=== PATIENT | male | born 1980 | race Two or more races ===

== ENCOUNTER 2024-06-29 09:53 | Inpatient (IN) | payer OTHER ==
[2024-06-29] MEDS: SODIUM CHLORIDE 0.9% 1,000 ML IV STA (10:05)
[2024-06-29] MEDS: ATORVASTATIN 80 MG TAB PO STA (10:05)
[2024-06-29] MEDS: HEPARIN SODIUM 1,000 UN/ML (10ML VL) IV ONE (10:05)
--- NOTE | 2024-06-29 10:09 | ED ---
Chest Pain HPI - General Chief Complaint: Chest Pain Stated Complaint: STEMI Time Seen by Provider: 06/29/24 10:00 Source: patient Mode of arrival: EMS Limitations: no limitations - History of Present Illness Initial Comments: 44-year-old male with no reported past medical history who presents emergency department with chest pain. States that the pain started around 4:00 this morning. He started driving himself to the hospital when he "started losing consciousness". States that he pulled his car over to the side of the road and called EMS. EMS arrived and completed an EKG which demonstrated ST segment elevation. He was administered 324 mg of chewable aspirin and 1 nitro. His pain was alleviated. He has no previous history of cardiac disease. Admits to vaping. Intermittently has had chest pain for years and reports that he was treated for reflux. States that this is the most significant pain he has had. Pain radiates into the left arm. No radiation to the back. No other alleviating, precipitating modifying factors - Related Data Home Medications Medication Instructions Recorded Confirmed Testosterone Cypionate 200 mg IM Q14D 06/29/24 06/29/24 [Depo-Testosterone] Allergies Allergy/AdvReac Type Severity Reaction Status Date / Time erythromycin base Allergy Unknown Verified 06/29/24 10:11 [Erythromycin Base] Childhood Penicillins Allergy Unknown Verified 06/29/24 10:11 Childhood Review of Systems ROS Statement: Those systems with pertinent positive or pertinent negative responses have been documented in the HPI. ROS Other: All systems not noted in ROS Statement are negative. Past Medical History Past Medical History: Asthma Additional Past Medical History / Comment(s): LACERATION RIGHT INDEX FINGER History of Any Multi-Drug Resistant Organisms: None Reported Past Surgical History: Cholecystectomy Past Anesthesia/Blood Transfusion Reactions: No Reported Reaction Past Psychological History: No Psychological Hx Reported Past Alcohol Use History: Occasional Past Drug Use History: None Reported General Exam Limitations: no limitations General appearance: alert, in no apparent distress Head exam: Present: atraumatic, normocephalic, normal inspection Eye exam: Present: normal appearance, PERRL, EOMI. Absent: scleral icterus, conjunctival injection, periorbital swelling ENT exam: Present: normal exam, mucous membranes moist Neck exam: Present: normal inspection. Absent: tenderness, meningismus, lymphadenopathy Respiratory exam: Present: normal lung sounds bilaterally. Absent: respiratory distress, wheezes, rales, rhonchi, stridor Cardiovascular Exam: Present: regular rate, normal rhythm, normal heart sounds. Absent: systolic murmur, diastolic murmur, rubs, gallop, clicks GI/Abdominal exam: Present: soft, normal bowel sounds. Absent: distended, tenderness, guarding, rebound, rigid Extremities exam: Present: normal inspection, full ROM, normal capillary refill. Absent: tenderness, pedal edema, joint swelling, calf tenderness Back exam: Present: normal inspection Neurological exam: Present: alert, oriented X3, CN II-XII intact Psychiatric exam: Present: normal affect, normal mood Skin exam: Present: warm, dry, intact, normal color. Absent: rash Course Vital Signs 06/29/24 06/29/24 09:57 10:07 Temperature 98.7 F Pulse Rate 86 105 H Respiratory 20 20 Rate Blood Pressure 168/120 182/103 O2 Sat by Pulse 98 96 Oximetry Chest Pain MDM - MDM Was pt. sent in by a medical professional or institution (, PA, ELIGIBILITY COUNSELOR, urgent care, hospital, or [facility]...) When possible be specific @ -No Did you speak to anyone other than the patient for history (EMS, parent, family, police, friend...)? What history was obtained from this source @ -Spoke with EMS for history Did you review nursing and triage notes (agree or disagree)? Why? @ -I reviewed and agree with nursing and triage notes Were old charts reviewed (outside hosp., previous admission, EMS record, old EKG, old radiological studies, urgent care reports/EKG's, [facility] records)? Report findings @ -No old charts were reviewed Differential Diagnosis (chest pain, altered mental status, abdominal pain women, abdominal pain men, vaginal bleeding, weakness, fever, dyspnea, syncope, headache, dizziness, GI bleed, back pain, seizure, CVA, palpatations, mental health, musculoskeletal)? @ -Differential Chest Pain: Stable Angina, Unstable Angina, STEMI, NSTEMI Aortic Dissection, Pneumothorax, Musculoskeletal, Esophageal Spasm GERD, Cholecystitis, Pancreatitis, Zoster, this is not meant to be an all-inclusive list. EKG interpreted by me (3pts min.). @ -Yes he will demonstrate sinus tachycardia with a rate of 100. OK interval 144. QRS 79. QTc of 356. No ST segment elevation appreciated on this EKG that was previously appreciated on EMS EKG X-rays interpreted by me (1pt min.). @ -yes and demonstrates enlarged cardiac silhouette CT interpreted by me (1pt min.). @ -None done U/S interpreted by me (1pt. min.). @ -None done What testing was considered but not performed or refused? (CT, X-rays, U/S, labs)? Why? @ -None What meds were considered but not given or refused? Why? @ -None Did you discuss the management of the patient with other professionals (professionals i.e. DrFrancisco, PA, ELIGIBILITY COUNSELOR, lab, RT, psych nurse, social services director, card dealer, teacher, attendance officer, immigration case worker)? Give summary @ -Spoke with Dr. Dejesus who does present to the ED to evaluate the patient. Also spoke with Dr. Vásquez for admission Was smoking cessation discussed for >3mins.? @ -No Was critical care preformed (if so, how long)? @ -Yes, 35 minutes for STEMI activation Were there social determinants of health that impacted care today? How? (Homelessness, low income, unemployed, alcoholism, drug addiction, transportation, low edu. Level, literacy, decrease access to med. care, fci, rehab)? @ -No Was there de-escalation of care discussed even if they declined (Discuss DNR or withdrawal of care, Hospice)? DNR status @ -No What co-morbidities impacted this encounter? (DM, HTN, Smoking, COPD, CAD, Cancer, CVA, ARF, Chemo, Hep., AIDS, mental health diagnosis, sleep apnea, morbid obesity)? @ -None Was patient admitted / discharged? Hospital course, mention meds given and route, prescriptions, significant lab abnormalities, going to OR and other pertinent info. @ -Arrival patient seen and evaluated in trauma 1. Dr. Dejesus presents to the ED as a STEMI activation occurred prior to patient's arrival. Patient placed on continuous pulse ox and cardiac monitoring. Pain is controlled at this time. Prehospital EKG demonstrated ST segment elevation in the anterior leads. Repeat EKG does demonstrate normalization of this elevation. He was given atorvastatin 80 mg, 1 L bolus of normal saline and 4000 units of heparin as he has no contraindication. Portable chest x-ray was performed. Patient is taken to the catheterization lab. Spoke with Dr. Vásquez for admission Undiagnosed new problem with uncertain prognosis? @ -Yes Drug Therapy requiring intensive monitoring for toxicity (Heparin, Nitro, Insulin, Cardizem)? @ -Heparin Were any procedures done? @ -No Diagnosis/symptom? @ -Acute ST segment elevation [place] Acute, or Chronic, or Acute on Chronic? @ -Acute Uncomplicated (without systemic symptoms) or Complicated (systemic symptoms)? @ -Complicated Side effects of treatment? @ -No Exacerbation, Progression, or Severe Exacerbation? @ -No Poses a threat to life or bodily function? How? (Chest pain, [place], [place], pneumonia, PE, COPD, DKA, ARF, appy, cholecystitis, CVA, Diverticulitis, Homicidal, Suicidal, threat to staff... and all critical care pts) @ -Yes as patient has significant ST elevation on prehospital EKG Disposition Clinical Impression: STEMI (ST elevation myocardial infarction) Disposition: ADMITTED IP TO THIS [facility] Condition: Serious Is patient prescribed a controlled substance at d/c from ED?: No Referrals: Jeff Slaughter MD [Primary Care Provider] - 1-2 days Time of Disposition: 10:14 Decision to Admit Reason: Admit from EC Decision Date: 06/29/24 Decision Time: 10:14
[2024-06-29] MEDS: MIDAZOLAM 2 MG/2 ML VIAL IVP ONE ×2 (10:18→10:24)
[2024-06-29] MEDS: LIDOCAINE 1% INJ 10MG/ML (20 ML MDV) SQ ONE (10:21)
[2024-06-29] MEDS: fentaNYL (PF) 50 MCG/ML 2 ML AMP IVP ONE (10:23)
[2024-06-29] MEDS ORDERED: NALOXONE 0.4 MG/ML 1 ML VIAL IV PRN (10:26)
--- NOTE | 2024-06-29 10:27 | XR ---
EXAMINATION TYPE: XR chest 1V portable DATE OF EXAM: 06/29/2024 10:09 AM CLINICAL INDICATION: Male, 44 years old with history of chest pain; COMPARISON: None TECHNIQUE: XR chest 1V portable Frontal view of the chest. FINDINGS: Lungs/Pleura: There is no evidence of pleural effusion, focal consolidation, or pneumothorax. Pulmonary vascularity: Unremarkable. Heart/mediastinum: Cardiomediastinal silhouette is unremarkable. Musculoskeletal: No acute osseous pathology. Other findings: None Lines/Tubes: IMPRESSION: No acute cardiopulmonary disease/process.
[2024-06-29] MEDS: HEPARIN SODIUM 1,000 UN/ML (10ML VL) IVP ONE (10:36)
[2024-06-29] MEDS: TICAGRELOR 90 MG TAB PO ONE (10:37)
--- NOTE | 2024-06-29 10:41 | P.CRDCN ---
History of Present Illness Consult date: 06/29/24 Reason for Consult (text): NSTEMI History of present illness: This is a 44-year-old male patient with past medical history of GERD, no previous cardiac history. Patient developed chest pain that started this morning off and on. He was driving and ended up pulling over, was dizzy ended up blacking out" then called EMS. He was having tingling in the left arm as well as midsternal chest pain. EKG revealed ST elevation in the anterior leads. Currently pain is a #4. He has a history of smoking and quit 2 years ago but currently vapes. He also has history of chest pain for 20 years and had his gallbladder removed which did not help relieve the pain. EKG: ST elevation in anterior leads. Chest x-ray: No acute process Laboratory studies: None available Home cardiac medications: None Review Of Systems: At the time of my exam: CONSTITUTIONAL: Denies fever or chills. HEENT: Denies blurred vision, vision changes, or eye pain. Denies hemoptysis CARDIOVASCULAR: Reports 4/10 chest pain. Denies orthopnea. Denies PND. Denies palpitations RESPIRATORY: Denies shortness of breath. GASTROINTESTINAL: Denies abdominal pain. Denies nausea or vomiting. HEMATOLOGIC: Denies bleeding disorders. GENITOURINARY: Denies any blood in urine. SKIN: Denies puritis. Denies rash. Physical examination: Gen: This is a 44-year-old male in no acute distress VS: reviewed HEENT: Head is atraumatic, normocephalic. Pupils equal, round. Sclerae is anict hernan. NECK: Supple. No JVD. LUNGS: Clear to auscultation. No wheezes or rhonchi. No intercostal retractions. HEART: Regular rate and rhythm. No murmur. ABDOMEN: Soft No tenderness. EXTREMITIES: No pedal edema. No calf tenderness. NEUROLOGICAL: Patient is awake, alert and oriented x3. Assessment: Anterior wall ST elevated myocardial infarction Remote history of tobacco use, currently vapes Plan: Patient scheduled for urgent left heart catheterization with Dr. Abdullahi Dejesus Obtain 2-D echocardiogram and Doppler study to assess cardiac structure and function Further recommendations to follow based upon clinical course Thank you kindly for this consultation. Nurse practitioner note has been reviewed, I agree with documented findings and plan of care. Patient was seen and examined. Past Medical History Past Medical History: Asthma Additional Past Medical History / Comment(s): LACERATION RIGHT INDEX FINGER History of Any Multi-Drug Resistant Organisms: None Reported Past Surgical History: Cholecystectomy Past Anesthesia/Blood Transfusion Reactions: No Reported Reaction Past Psychological History: No Psychological Hx Reported Past Alcohol Use History: Occasional Past Drug Use History: None Reported Medications and Allergies Home Medications Medication Instructions Recorded Confirmed Type Testosterone Cypionate 200 mg IM Q14D 06/29/24 06/29/24 History [Depo-Testosterone] Allergies Allergy/AdvReac Type Severity Reaction Status Date / Time erythromycin base Allergy Unknown Verified 06/29/24 10:11 [Erythromycin Base] Childhood Penicillins Allergy Unknown Verified 06/29/24 10:11 Childhood Physical Exam Vitals: Vital Signs Temp Pulse Pulse Resp BP Pulse Ox 06/29/24 10:07 105 H 20 182/103 96 06/29/24 10:05 100 20 160/100 98 06/29/24 10:01 80 06/29/24 09:57 98.7 F 86 20 168/120 98 Intake and Output 06/28/24 06/29/24 06/29/24 22:59 06:59 14:59 Other: Weight 95.254 kg Results Current Medications Generic Name Dose Route Start Last Admin Trade Name Freq PRN Reason Stop Dose Admin Sodium Chloride 1,000 mls @ 999 mls/hr 06/29/24 10:02 06/29/24 10:05 Saline 0.9% IV 06/29/24 11:02 999 mls/hr .Q1H1M STA Administration Naloxone HCl 0.2 mg 06/29/24 10:26 Naloxone 0.4 Mg/Ml 1 Ml Vial IV Q2M PRN Opioid Reversal Intake and Output 06/28/24 06/29/24 06/29/24 22:59 06:59 14:59 Other: Weight 95.254 kg Patient Weight 06/30/24 06:59 Weight 95.254 kg
[2024-06-29] MEDS: IOPAMIDOL-370 200ML BTL INJ ONE (11:13)
[2024-06-29] MEDS: SODIUM CHLORIDE 0.9% 1,000 ML IV ONE (11:14)
--- NOTE | 2024-06-29 11:14 | P.CARDCATH ---
Date of Procedure: 06/29/24 Preoperative Diagnosis: Acute anterior wall myocardial infarction Postoperative Diagnosis: Acute antiviral myocardial infarction Procedure(s) Performed: Left heart catheterization coronary angiogram Anesthesia: MAC (Total sedation time is 11 minutes) Condition: critical Disposition: ICU Indications for Procedure: Acute anterior wall AK Description of Procedure: Procedure note: After obtaining informed consent left heart catheterization and coronary angiogram were performed via the right femoral artery using standard Alta catheters patient tolerated the procedure well without any Opsumit complications Femoral arterial access was obtained using Seldinger technique 6 [place]ian sheath was placed catheters and wires were brought into the ascending aorta under fluoroscopic guidance patient received moderate conscious sedation total sedation time was 11 minutes. The procedure was completed without any obvious immediate complications Findings: Hemodynamics: Left ventricular end-diastolic pressure is 12 mm there is no significant gradient across the aortic valve Left ventriculogram: Not performed Angiographic data: Right coronary artery is a nondominant vessel and is free of significant stenosis. Left main coronary artery appears calcified but is free of significant disease divides into left anterior descending coronary artery and circumflex coronary artery circumflex coronary artery is a dominant vessel and is free of significant disease LAD in its midportion shows an area of plaque rupture with an 80% stenosis. Conclusions: Mid LAD stenosis with an area of plaque rupture Plan Angiographic data was reviewed by Dr. Patel the on-call seating and mobility technologist who will proceed with angioplasty and stenting of the LAD
[2024-06-29] MEDS: HEPARIN SODIUM,PORCINE 10,000 UNIT in SODIUM CHLORIDE 0.9% 1,000 ML IRRIGATION ONE (11:15)
[2024-06-29 11:17] LABS: Basophils % (A) 0 %; Eosinophils # (A) 0.1 k/uL (0-0.7); Eosinophils % (A) 2 %; HGB 16.6 gm/dL (13.0-17.5); Lymphocytes # (A) 1.2 k/uL (1.0-4.8); Lymphocytes % (A) 16 %; MCH 32.8 pg (25.0-35.0); MCHC 33.2 g/dL (31.0-37.0); MCV 98.7 fL (80.0-100.0); Mean Platelet Volume 7.9; Monocytes # (A) 0.5 k/uL (0-1.0); Monocytes % (A) 6 %; Neutrophils # (A) 5.7 k/uL (1.3-7.7); Neutrophils % (A) 75 %; Platelet Count 216 k/uL (150-450); RBC 5.07 m/uL (4.30-5.90); RDW 12.9 % (11.5-15.5); WBC 7.6 k/uL (3.8-10.6)
[2024-06-29 11:27] LABS: Glucose,Whole Blood 114 mg/dL (70-110)
[2024-06-29 12:10] LABS: INR 1.2 (<1.2); Prothrombin Time 12.9 sec (10.0-12.5)
[2024-06-29 12:21] LABS: Partial Thromboplastin Time 120.1 sec (22.0-30.0)
[2024-06-29] MEDS ORDERED: NITROGLYCERIN SL TABS 0.4 MG TAB SUBLINGUAL PRN (12:22)
[2024-06-29] MEDS ORDERED: MAG HYDROX/AL HYDROX/SIMETH 30 ML CUP PO PRN (12:22)
[2024-06-29] MEDS ORDERED: ZOLPIDEM 5 MG TAB PO PRN (12:22)
[2024-06-29] MEDS ORDERED: RX INFO: IV CONTRAST WAS GIVEN 1 EACH MISC MISCELLANE PRN (12:22)
[2024-06-29] MEDS ORDERED: ATROPINE SULFATE 0.1 MG/ML 10ML SYRINGE IV PRN (12:22)
--- NOTE | 2024-06-29 12:28 | P.PCN ---
Date of Procedure: 06/29/24 Operative Findings: Percutaneous coronary intervention Performing physician Francois Patel MD Procedure performed Successful PCI of the proximal left anterior descending artery using 3.5 x 28 mm Xience DEVYN with adjunctive use of IVUS Selective right common femoral artery angiogram Indication Acute anterior ST elevation myocardial infarction. Please refer to diagnostic heart catheterization was performed earlier today by Dr. Dejesus Complication None Approach Right common femoral artery Procedure scription After obtaining informed consent the patient was brought to the cardiac Cnc Mill And Lathe Operator emergently and underwent a heart catheterization by Dr. Ybarra. Subsequently anticoagulation was initiated using heparin with continuous ACT monitoring. I did engage the left main using JL 4 guiding cath. I did wire the LAD using LM through wire. Intravascular ultrasound was performed and showed a diameter a round 3.5 mm. At that point I did predilated using 3 mm balloon which was noncompliant balloon before I deployed a 3.5 x 28 mm Xience DEVYN which was initially postdilated using 3.75 mm noncompliant balloon and subsequently 4 mm noncompliant balloon. Final angiogram showed excellent angiographic results. The procedure was completed with no complication. Finally selective right common femoral artery angiogram was performed. Postprocedure management Dual antiplatelet therapy for at least a year using aspirin and Brilinta An echocardiogram with Doppler Aggressive cholesterol control Follow-up with the patient
[2024-06-29] MEDS ORDERED: SODIUM CHLORIDE 0.9% 1,000 ML in EMPTY BAG 1 BAG IV SCH (12:30)
[2024-06-29 12:31] LABS: ALT 24 U/L (4-49); AST 24 U/L (17-59); African American GFR (CKD) >90 (>60 ml/min/1.73 sqM); Albumin 3.1 g/dL (3.5-5.0); Alkaline Phosphatase 61 U/L (38-126); Anion Gap 5 mmol/L; Blood Urea Nitrogen 5 mg/dL (9-20); Calcium 8.2 mg/dL (8.4-10.2); Carbon Dioxide 22 mmol/L (22-30); Chloride 106 mmol/L (98-107); Glucose 129 mg/dL (74-99); Non-African American GFR(CKD) >90 (>60 ml/min/1.73 sqM); Potassium 4.3 mmol/L (3.5-5.1); Sodium 133 mmol/L (137-145); Total Bilirubin 0.4 mg/dL (0.2-1.3); Total Protein 5.5 g/dL (6.3-8.2)
--- NOTE | 2024-06-29 13:52 | P.HPIM ---
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 Chronic stable medical conditions include GERD, for which he takes omeprazole and testosterone. Patient's had chest pain on and off. Has had previous cholec ystectomy. This morning around 4 AM patient developed chest pressure going to his left arm feeling numb. He did walk around for couple of hours. The settle down. There is no radiation no dizziness no lightheadedness. 7:15 AM patient went to the work. Pain is settled on his own. His colleagues and his told him to get to the hospital. When he was driving he developed chest pressure again. And had a near syncope. EMS was called. He received chewable aspirin. Patient stopped smoking 2 years ago but does significant amount of vaping. EKG had shown ST elevation per EMS. Patient was taken to the cardiac Pressroom Worker. Midportion of LAD showed area of plaque rupture with 80% stenosis. Initial cardiac cath was done by Dr. Camila Dejesus and intervention by Dr. Carlton. Postprocedure patient is the ICU. and sister at the bedside. Review of systems: GEN.: Tired EYES: None HEENT: None NECK: None RESPIRATORY: None CARDIOVASCULAR: As above GASTROINTESTINAL: GERD GENITOURINARY: None MUSCULOSKELETAL: None LYMPHATICS: None HEMATOLOGICAL: None PSYCHIATRY: None NEUROLOGICAL: None Social history: . Patient smoked for about 25 years averaged about 2 and half packs a day stopped 2 years ago. Does vaping significantly. Drinks an average of 10 beers a week. Works at [employer] Physical examination: VITAL SIGNS: Afebrile, 77, 16, 137/96, 97% room air GENERAL: BMI 33.5, laying in bed awake moderate distress. EYES: Pupils equal. Conjunctiva rahul l. HEENT: External appearance of nose and ears normal, oral cavity grossly normal. NECK: JVD not raised; masses not palpable. HEART: First and second heart sounds are normal; no edema. LUNGS: Respiratory rate normal; clear to auscultation. ABDOMEN: Soft, nontender, liver spleen not palpable, no masses palpable. PSYCH: Alert and oriented x3; mood and affect rahul l. MUSCULOSKELETAL:No Clubbing/cyanosis;muscles-grossly intact NEUROLOGICAL: Cranial nerves grossly intact; no facial asymmetry, power and sensation grossly intact. LYMPHATICS: No lymph nodes palpable in the axilla and neck INVESTIGATIONS, reviewed in the clinical context: June 29, 2024: White count 7.6 hemoglobin 16.6 platelets 216 sodium 133 potassium 4.3 BUN 5 creatinine 0.8 Troponin I 0.077, 0.185 EKG tracing personally reviewed by me-normal sinus rhythm. Peaked T waves. EKG reported from the EMS at field showed ST elevation Chest x-ray film personally reviewed by me-unremarkable Assessment plan: Acute ST elevation LA, of the anterior wall. Cardiac cath showed plaque rupture mid LAD with 80% stenosis. Successful stent. Initial cardiac catheterization done by Dr. Camila Dejesus. Followed by stent placement by Dr. Carlton. Aspirin. Lipitor. Lopressor. -Nicotine dependence. Patient stopped smoking 2 years ago. Does heavy vaping. Nicotine patch -Hypotestosteronism Patient on testosterone Depo shots every 14 days -Obesity BMI 33.5 Weight loss measures -GERD PPI Care was discussed with the patient his and sister at the bedside. Questions answered. Follow-up with cardiology. Patient is currently in the ICU. 2D echo. Lipid profile Past Medical History Past Medical History: Asthma Additional Past Medical History / Comment(s): LACERATION RIGHT INDEX FINGER History of Any Multi-Drug Resistant Organisms: None Reported Past Surgical History: Cholecystectomy, Heart Catheterization, Heart Catheterization With Stent Additional Past Surgical History / Comment(s): wisdom teeth. Past Anesthesia/Blood Transfusion Reactions: No Reported Reaction Date of Last Stent Placement:: 06/29/2024 Past Psychological History: No Psychological Hx Reported Smoking Status: Former smoker, Vaper Past Alcohol Use History: Occasional Past Drug Use History: None Reported Medications and Allergies Home Medications Medication Instructions Recorded Confirmed Type Testosterone Cypionate 200 mg IM Q14D 06/29/24 06/29/24 History [Depo-Testosterone] Allergies Allergy/AdvReac Type Severity Reaction Status Date / Time erythromycin base Allergy Unknown Verified 06/29/24 10:11 [Erythromycin Base] Childhood Penicillins Allergy Unknown Verified 06/29/24 10:11 Childhood Physical Exam Vitals: Vital Signs Temp Pulse Pulse Resp BP Pulse Ox 06/29/24 13:15 73 18 152/99 97 06/29/24 13:00 77 16 137/96 97 06/29/24 12:45 76 18 137/96 97 06/29/24 12:30 85 19 147/103 97 06/29/24 12:15 75 11 L 131/96 97 06/29/24 12:00 73 15 136/97 96 06/29/24 11:45 83 13 154/105 95 06/29/24 11:30 84 13 135/108 96 06/29/24 10:07 105 H 20 182/103 96 06/29/24 10:05 100 20 160/100 98 06/29/24 10:01 80 06/29/24 09:57 98.7 F 86 20 168/120 98 Intake and Output 06/28/24 06/29/24 06/29/24 22:59 06:59 14:59 Intake Total 900 Output Total 700 Balance 200 Intake: IV 900 Sodium Chloride 0.9% 1, 150 000 ml In Empty Bag 1 bag @ 75 ML/KG/HR 7710 mls/ hr IV .Q8M SARTHAK Rx#: [id number] Output: Urine 700 Other: # Voids 1 Weight 102.8 kg Results CBC & Chem 7: 06/29/24 11:00 06/29/24 11:00 Labs: Abnormal Lab Results - Last 24 Hours (Table) 06/29/24 06/29/24 06/29/24 Range/Units 10:02 11:00 11:00 PT 12.9 H (10.0-12.5) sec INR 1.2 H (<1.2) APTT 120.1 H* (22.0-30.0) sec Sodium 133 L (137-145) mmol/L BUN 5 L (9-20) mg/dL Glucose 129 H (74-99) mg/dL POC Glucose (mg/dL) (70-110) mg/dL Calcium 8.2 L (8.4-10.2) mg/dL Troponin I 0.077 H* (0.000-0.034) ng/mL Total Protein 5.5 L (6.3-8.2) g/dL Albumin 3.1 L (3.5-5.0) g/dL 06/29/24 06/29/24 Range/Units 11:25 11:25 PT (10.0-12.5) sec INR (<1.2) APTT (22.0-30.0) sec Sodium (137-145) mmol/L BUN (9-20) mg/dL Glucose (74-99) mg/dL POC Glucose (mg/dL) 114 H (70-110) mg/dL Calcium (8.4-10.2) mg/dL Troponin I 0.185 H* (0.000-0.034) ng/mL Total Protein (6.3-8.2) g/dL Albumin (3.5-5.0) g/dL Thrombosis Risk Factor Assmnt - Choose All That Apply Any of the Below Risk Factors Present?: Yes Each Factor Represents 1 point: Acute LA, Age 41-60 years, Obesity (BMI >25) Other Risk Factors: No Other congenital or acquired thrombophilia - If yes, enter type in comment: No Thrombosis Risk Factor Assessment Total Risk Factor Score: 3 Thrombosis Risk Factor Assessment Level: Moderate Risk
[2024-06-29 18:53] LABS: Chol/HDL Ratio 5.92 Ratio
[2024-06-29] MEDS: PANTOPRAZOLE 40 MG TABLET PO SCH (20:23)
[2024-06-29] MEDS: ATORVASTATIN 80 MG TAB PO SCH (20:23)
[2024-06-29] MEDS: TICAGRELOR 90 MG TAB PO SCH (20:24)
[2024-06-29] MEDS: METOPROLOL TARTRATE 25 MG TAB PO SCH (20:30)
[2024-06-30] MEDS: NICOTINE 21MG/24HR PATCH TRANSDERM SCH (04:22)
[2024-06-30] MEDS: ASPIRIN 81 MG PO SCH (08:32)
--- NOTE | 2024-06-30 12:30 | P.PN ---
Subjective Progress Note Date: 06/30/24 Patient is a 44-year-old male who presented to the emergency department on 06/29/2024 intermittent chest pain for a few hours. He endorsed tingling in the left arm as well as midsternal chest pain. EKG revealed ST elevation in the anterior leads. He was subsequently taken for urgent left heart catheter ization. He is status post PCI of the LAD. Today he states that he is feeling well, no chest pain or shortness of breath. ROS performed. Pertinent positives and negatives discussed above, a complete review of systems was performed and all the other systems were negative. Objective - Vital Signs Vital signs: Vital Signs Temp 98.0 F 06/30/24 00:00 Pulse 71 06/30/24 07:00 Resp 12 06/30/24 07:00 BP 141/95 06/30/24 07:00 Pulse Ox 96 06/30/24 07:00 FiO2 Intake & Output 06/29/24 06/30/24 06/30/24 18:59 06:59 18:59 Intake Total 1275 250 Output Total 1925 Balance -650 250 Weight 102.8 kg 102.3 kg Intake: IV 1275 150 Sodium Chloride 0.9% 1, 525 150 000 ml In Empty Bag 1 bag @ 75 ML/KG/HR 7710 mls/ hr IV .Q8M [facility] Rx#: [id number] Oral 100 Output: Urine 1925 Other: Voiding Method Urinal Urinal # Voids 1 1 1 - Exam Vital signs are stable. General: No acute distress. HEENT: Head exam is unremarkable. Lungs: Bilateral breath sounds present; no rhonchi, wheezes, or rales. Heart: Rate and rhythm are regular. S1S2 present. Abdomen: Soft, nondistended. Extremities: No edema present. Catheterization site clean and dry. - Labs CBC & Chem 7: 06/29/24 11:00 06/29/24 11:00 Labs: Abnormal Lab Results - Last 24 Hours (Table) 06/29/24 06/29/24 06/29/24 Range/Units 10:02 11:00 11:00 PT 12.9 H (10.0-12.5) sec INR 1.2 H (<1.2) APTT 120.1 H* (22.0-30.0) sec Sodium 133 L (137-145) mmol/L BUN 5 L (9-20) mg/dL Glucose 129 H (74-99) mg/dL POC Glucose (mg/dL) (70-110) mg/dL Calcium 8.2 L (8.4-10.2) mg/dL Troponin I 0.077 H* (0.000-0.034) ng/mL Total Protein 5.5 L (6.3-8.2) g/dL Albumin 3.1 L (3.5-5.0) g/dL Triglycerides (0.00-149.00) mg/dL Cholesterol (0.00-200.00) mg/dL LDL Cholesterol, Calc (0.0-131.0) mg/dL VLDL Cholesterol, Calc (5.00-40.00) mg/dL HDL Cholesterol (40.00-60.00) mg/dL 06/29/24 06/29/24 06/29/24 Range/Units 11:25 11:25 15:28 PT (10.0-12.5) sec INR (<1.2) APTT (22.0-30.0) sec Sodium (137-145) mmol/L BUN (9-20) mg/dL Glucose (74-99) mg/dL POC Glucose (mg/dL) 114 H (70-110) mg/dL Calcium (8.4-10.2) mg/dL Troponin I 0.185 H* 0.780 H* (0.000-0.034) ng/mL Total Protein (6.3-8.2) g/dL Albumin (3.5-5.0) g/dL Triglycerides (0.00-149.00) mg/dL Cholesterol (0.00-200.00) mg/dL LDL Cholesterol, Calc (0.0-131.0) mg/dL VLDL Cholesterol, Calc (5.00-40.00) mg/dL HDL Cholesterol (40.00-60.00) mg/dL 06/29/24 Range/Units 15:28 PT (10.0-12.5) sec INR (<1.2) APTT (22.0-30.0) sec Sodium (137-145) mmol/L BUN (9-20) mg/dL Glucose (74-99) mg/dL POC Glucose (mg/dL) (70-110) mg/dL Calcium (8.4-10.2) mg/dL Troponin I (0.000-0.034) ng/mL Total Protein (6.3-8.2) g/dL Albumin (3.5-5.0) g/dL Triglycerides 231.00 H (0.00-149.00) mg/dL Cholesterol 218.00 H (0.00-200.00) mg/dL LDL Cholesterol, Calc 135.0 H (0.0-131.0) mg/dL VLDL Cholesterol, Calc 46.20 H (5.00-40.00) mg/dL HDL Cholesterol 36.80 L (40.00-60.00) mg/dL Assessment and Plan Assessment: 1. Acute ST elevation TN of the anterior wall, S/P PCI of the LAD 06/29/2024. 2. Hyperlipidemia. 3. Nicotine dependence. Stop smoking cigarettes 2 years ago but continues to vape heavily. 4. GERD. Plan: Continue aspirin. Continue Lipitor. Continue Lopressor. Continue Brilinta. Obtain 2D echo results. Discussed with the patient possible discharge on Thursday, depending on hospital course.
--- NOTE | 2024-06-30 13:24 | CA ---
Transthoracic Echo Report Name: Darin Hale Age: 44 Gender: M : 1980 Exam Date: 06/29/2024 14:57 Exam Location: [facility] Ht (in): 69 Wt (lb): 226 Ordering Physician: Francois Carlton MD ([id number]) Attending/Referring Phys: Sales And Marketing Professional Randa Mares RDCS Procedure CPT: Indications: stemi Cardiac Hx: Technical Quality: Technically difficult study Contrast 1: Definity Total Dose (mL): 2 Contrast 2: Total Dose (mL): MEASUREMENTS (Male / Female) Normal Values 2D ECHO LV Diastolic Diameter PLAX 4.9 cm 4.2 - 5.9 / 3.9 - 5.3 cm LV Systolic Diameter PLAX 3.2 cm IVS Diastolic Thickness 1.1 cm 0.6 - 1.0 / 0.6 - 0.9 cm LVPW Diastolic Thickness 1.0 cm 0.6 - 1.0 / 0.6 - 0.9 cm LV Relative Wall Thickness 0.4 LVOT Diameter 2.3 cm Aortic Root Diameter 3.3 cm LV Diastolic Volume MOD BP 92.4 cm??? 67 - 155 / 56 - 104 cm??? LV Systolic Volume MOD BP 35.9 cm??? 22 - 58 / 19 - 49 cm??? LV Ejection Fraction MOD BP 61.1 % >= 55 % LV Cardiac Index MOD BP 1817.3 cm???/min???m??? LV Diastolic Volume MOD 4C 113.3 cm??? LV Systolic Volume MOD 4C 45.5 cm??? LV Ejection Fraction MOD 4C 59.8 % LV Cardiac Index MOD 4C 2179.4 cm???/min???m??? LV Diastolic Length 4C 9.4 cm LV Systolic Length 4C 8.2 cm LV Diastolic Volume MOD 2C 73.2 cm??? LV Systolic Volume MOD 2C 27.0 cm??? LV Ejection Fraction MOD 2C 63.1 % LV Cardiac Index MOD 2C 1486.8 cm???/min???m??? LV Diastolic Length 2C 9.1 cm LV Systolic Length 2C 7.7 cm Ascending Aorta Diameter 3.0 cm DOPPLER AV Peak Velocity 128.9 cm/s AV Peak Gradient 6.6 mmHg AV Mean Velocity 92.6 cm/s AV Mean Gradient 3.7 mmHg AV Velocity Time Integral 24.1 cm LVOT Peak Velocity 121.5 cm/s LVOT Peak Gradient 5.9 mmHg LVOT Velocity Time Integral 23.6 cm LVOT Stroke Volume 100.7 cm??? LVOT Stroke Volume Index 46.3 ml/m??? LVOT Cardiac Index 3240.3 cm???/min???m??? AV Area Cont Eq vti 4.2 cm??? AV Area Cont Eq pk 4.0 cm??? Mitral E Point Velocity 45.7 cm/s Mitral A Point Velocity 49.2 cm/s Mitral E to A Ratio 0.9 MV Deceleration Time 199.5 ms MV E' Velocity 7.7 cm/s Mitral E to MV E' Ratio 5.9 PV Peak Velocity 87.0 cm/s PV Peak Gradient 3.0 mmHg FINDINGS Left Ventricle Left ventricular ejection fraction is estimated at 50-55%. Left ventricular cavity size normal. Left ventricular wall thickness normal. Inferior apex hypokinetic. Right Ventricle Normal right ventricular size and function. Unable to estimate the right ventricular systolic pressure. Right Atrium Normal right atrial size. Left Atrium Normal left atrial size. Mitral Valve Structurally normal mitral valve. No mitral stenosis, regurgitation or prolapse. Aortic Valve Aortic valve not well visualized. No aortic valve stenosis or regurgitation. Tricuspid Valve Structurally normal tricuspid valve. No tricuspid stenosis. Trace tricuspid regurgitation. Pulmonic Valve Pulmonic valve not well visualized. No pulmonic stenosis. No pulmonic regurgitation. Pericardium No pericardial effusion. Aorta Normal size aortic root and proximal ascending aorta. CONCLUSIONS Left ventricular ejection fraction 50-55% with inferior apical hypokinesis No mitral regurgitation Trace tricuspid regurgitation No pericardial effusion Previewed by: Dr. Mike Guzmán DO (Electronically Signed) Final Date: 30 June 2024 13:20
[2024-06-30 14:57] VITALS: BMI 33.3
--- NOTE | 2024-06-30 17:06 | P.PN ---
Progress Note - Text Progress Note Date: 06/30/24 Chief Complaint: Chest pressure This is a pleasant 44-year-old patient who follows with [facility]LL[facility] Cecil Baldwin. Chronic stable medical conditions include GERD, for which he takes omeprazole and testosterone. Patient's had chest pain on and off. Has had previous c holecystectomy. This morning around 4 AM patient developed chest pressure going to his left arm feeling numb. He did walk around for couple of hours. The settle down. There is no radiation no dizziness no lightheadedness. 7:15 AM patient went to the work. Pain is settled on his own. His colleagues and his told him to get to the hospital. When he was driving he developed chest pressure again. And had a near syncope. EMS was called. He received chewable aspirin. Patient stopped smoking 2 years ago but does significant amount of vaping. EKG had shown ST elevation per EMS. Patient was taken to the cardiac Production Control Scheduler. Midportion of LAD showed area of plaque rupture with 80% stenosis. Initial cardiac cath was done by Dr. Camila Dejesus and intervention by Dr. Carlton. Postprocedure patient is the ICU. and sister at the bedside. June 30: Patient seen by me earlier today in the ICU. Has been up in the hallway. No cardiac symptoms. Lifestyle changes discussed at length. Chol esterol results discussed. Including smoking cessation. Tolerating diet. Active Medications Al Hydroxide/Mg Hydroxide (Mag Hydrox/Al Hydrox/Simeth 30 Ml Cup) 30 ml PO Q4HR PRN PRN Reason: Heartburn Aspirin (Aspirin 81 Mg) 81 mg PO DAILY [facility] Last Admin: 06/30/24 08:32 Dose: 81 mg Atorvastatin Calcium (Atorvastatin 80 Mg Tab) 80 mg PO HS [facility] Last Admin: 06/29/24 20:23 Dose: 80 mg Atropine Sulfate (Atropine Sulfate 0.1 Mg/Ml 10ml Syringe) 0.5 mg IV ONCE PRN PRN Reason: Symptomatic Bradycardia Metoprolol Tartrate (Metoprolol Tartrate 25 Mg Tab) 25 mg PO BID [facility] Last Admin: 06/30/24 08:32 Dose: 25 mg Miscellaneous Information (Rx Info: Iv Contrast Was Given 1 Each Misc) 1 each MISCELLANE DAILY PRN PRN Reason: Per Protocol Stop: 07/01/24 12:22 Naloxone HCl (Naloxone 0.4 Mg/Ml 1 Ml Vial) 0.2 mg IV Q2M PRN PRN Reason: Opioid Reversal Nicotine (Nicotine 21mg/24hr Patch) 1 patch TRANSDERM DAILY [facility] Last Admin: 06/30/24 08:31 Dose: Not Given Nitroglycerin (Nitroglycerin Sl Tabs 0.4 Mg Tab) 0.4 mg SUBLINGUAL Q5M PRN PRN Reason: Chest Pain Pantoprazole Sodium (Pantoprazole 40 Mg Tablet) 40 mg PO HS [facility] Last Admin: 06/29/24 20:23 Dose: Not Given Ticagrelor (Ticagrelor 90 Mg Tab) 90 mg PO BID [facility]; Protocol Last Admin: 06/30/24 08:32 Dose: 90 mg Zolpidem Tartrate (Zolpidem 5 Mg Tab) 5 mg PO HS PRN PRN Reason: Insomnia Social history: . Patient smoked for about 25 years averaged about 2 and half packs a day stopped 2 years ago. Does vaping significantly. Drinks an average of 10 beers a week. Works at [employer] for [employer] Physical examination: VITAL SIGNS: 98, 61, 16, 116 x 78, 96% room air GENERAL: BMI 33.5, comfortable s. EYES: Pupils equal. Conjunctiva rahul l. HEENT: External appearance of nose and ears normal, oral cavity grossly normal. NECK: JVD not raised; masses not palpable. HEART: First and second heart sounds are normal; no edema. LUNGS: Respiratory rate normal; clear to auscultation. ABDOMEN: Soft, nontender, liver spleen not palpable, no masses palpable. PSYCH: Alert and oriented x3; mood and affect rahul l. MUSCULOSKELETAL:No Clubbing/cyanosis;muscles-grossly intact INVESTIGATIONS, reviewed in the clinical context: 2D echo: EF 50-55% Triglycerides 231 LDL 135 June 29, 2024: White count 7.6 hemoglobin 16.6 platelets 216 sodium 133 potassium 4.3 BUN 5 creatinine 0.8 Troponin I 0.077, 0.185, 0.780 EKG tracing personally reviewed by me-normal sinus rhythm. Peaked T waves. EKG reported from the EMS at field showed ST elevation Chest x-ray film personally reviewed by me-unremarkable Assessment plan: Acute ST elevation [place], of the anterior wall. Cardiac cath showed plaque rupture mid LAD with 80% stenosis. Successful stent. Initial cardiac catheterization done by Dr. Camila Dejesus. Followed by stent placement by Dr. Carlton. Aspirin. Lipitor. Lopressor. -Nicotine dependence. Patient stopped smoking 2 years ago. Does heavy vaping. Nicotine patch -Hyperlipidemia Lipitor -Hypotestosteronism Patient on testosterone Depo shots every 14 days -Obesity BMI 33.5 Weight loss measures -GERD PPI Lifestyle changes discussed at length with the patient. Increase activity. Possible discharge tomorrow. Past Medical History Past Medical History: Asthma Additional Past Medical History / Comment(s): LACERATION RIGHT INDEX FINGER History of Any Multi-Drug Resistant Organisms: None Reported Past Surgical History: Cholecystectomy, Heart Catheterization, Heart Catheterization With Stent Additional Past Surgical History / Comment(s): wisdom teeth. Past Anesthesia/Blood Transfusion Reactions: No Reported Reaction Date of Last Stent Placement:: 06/29/2024 Past Psychological History: No Psychological Hx Reported Smoking Status: Former smoker, Vaper Past Alcohol Use History: Occasional Past Drug Use History: None Reported
[2024-07-01 08:38] LABS: African American GFR (CKD) >90 (>60 ml/min/1.73 sqM); Non-African American GFR(CKD) 90 (>60 ml/min/1.73 sqM)
--- NOTE | 2024-07-01 15:01 | P.PN ---
Subjective Progress Note Date: 07/01/24 Reason for Consult (text): NSTEMI History of present illness: This is a 44-year-old male patient with past medical history of GERD, no previous cardiac history. Patient developed chest pain that started this morning off and on. He was driving and ended up pulling over, was dizzy ended up blacking out" then called EMS. He was having tingling in the left arm as well as midsternal chest pain. EKG revealed ST elevation in the anterior leads. Currently pain is a #4. He has a history of smoking and quit 2 years ago but currently vapes. He also has history of chest pain for 20 years and had his gallbladder removed which did not help relieve the pain. EKG: ST elevation in anterior leads. Chest x-ray: No acute process Laboratory studies: None available Home cardiac medications: None 07/01 Patient underwent urgent left heart catheterization status post PCI of the LAD. Patient was in the intensive care unit and transferred to the cardiac stepdown unit. He denies having any chest pain, no shortness of breath, palpitations, lightheadedness or dizziness. Echocardiogram reveals EF of 50 to 55%, trace TR. Blood pressure 146/75, heart rate 63, pulse ox 96% on room air. Creatinine 1.02. Physical examination: Gen: This is a 44-year-old male in no acute distress VS: reviewed HEENT: Head is atraumatic, normocephalic. Pupils equal, round. Sclerae is anicteric. NECK: Supple. No JVD. LUNGS: Clear to auscultation. No wheezes or rhonchi. No intercostal retractions. HEART: Regular rate and rhythm. No murmur. ABDOMEN: Soft No tenderness. EXTREMITIES: No pedal edema. No calf tenderness. NEUROLOGICAL: Patient is awake, alert and oriented x3. Assessment: Acute anterior wall ST elevated myocardial infarction status post PCI of the LAD 06/29 Hyperlipidemia Remote history of tobacco use, currently vapes Gastroesophageal reflux disease Plan: Continue patient on aspirin 81 mg daily, Lipitor 80 mg daily, Lopressor 25 mg twice daily, Brilinta 90 mg twice daily Vaping cessation, patient will be given smoking cessation information at discharge Patient is cleared for discharge from cardiology and will follow-up with Dr. Abdullahi Dejesus after July 12. Patient is planning to go to [place] from July 08 through the . Nurse practitioner note has been reviewed, I agree with documented findings and plan of care. Patient was seen and examined. Objective - Vital Signs Vital signs: Vital Signs Temp 98 F 07/01/24 03:53 Pulse 66 07/01/24 03:53 Resp 16 07/01/24 03:53 BP 138/80 07/01/24 03:53 Pulse Ox 96 07/01/24 00:00 FiO2 Intake & Output 06/30/24 07/01/24 07/01/24 18:59 06:59 18:59 Intake Total 1500 240 240 Output Total 40 Balance 1460 240 240 Weight 102.3 kg 100.1 kg Intake: Oral 1500 240 240 Output: Urine 40 Other: Voiding Method Urinal Urinal # Voids 1 2 # Bowel Movements 1 - Labs CBC & Chem 7: 06/29/24 11:00 07/01/24 07:52
--- NOTE | 2024-07-01 16:20 | P.PN ---
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 Chronic stable medical conditions include GERD, for which he takes omeprazole and testosterone. Patient's had chest pain on and off. Has had previous c holecystectomy. This morning around 4 AM patient developed chest pressure going to his left arm feeling numb. He did walk around for couple of hours. The settle down. There is no radiation no dizziness no lightheadedness. 7:15 AM patient went to the work. Pain is settled on his own. His colleagues and his told him to get to the hospital. When he was driving he developed chest pressure again. And had a near syncope. EMS was called. He received chewable aspirin. Patient stopped smoking 2 years ago but does significant amount of vaping. EKG had shown ST elevation per EMS. Patient was taken to the cardiac Customer Services Supervisor. Midportion of LAD showed area of plaque rupture with 80% stenosis. Initial cardiac cath was done by Dr. Camila Dejesus and intervention by Dr. Carlton. Postprocedure patient is the ICU. and sister at the bedside. June 30: Patient seen by me earlier today in the ICU. Has been up in the hallway. No cardiac symptoms. Lifestyle changes discussed at length. Chol esterol results discussed. Including smoking cessation. Tolerating diet. July 01: Patient been up and about. No cardiac symptoms. Discussed. Cardiology would like to watch him for another 24 hours. Active Medications Al Hydroxide/Mg Hydroxide (Mag Hydrox/Al Hydrox/Simeth 30 Ml Cup) 30 ml PO Q4HR PRN PRN Reason: Heartburn Aspirin (Aspirin 81 Mg) 81 mg PO DAILY [facility] Last Admin: 07/01/24 09:04 Dose: 81 mg Atorvastatin Calcium (Atorvastatin 80 Mg Tab) 80 mg PO HS [facility] Last Admin: 06/30/24 20:28 Dose: 80 mg Atropine Sulfate (Atropine Sulfate 0.1 Mg/Ml 10ml Syringe) 0.5 mg IV ONCE PRN PRN Reason: Symptomatic Bradycardia Metoprolol Tartrate (Metoprolol Tartrate 25 Mg Tab) 25 mg PO BID [facility] Last Admin: 07/01/24 09:04 Dose: 25 mg Naloxone HCl (Naloxone 0.4 Mg/Ml 1 Ml Vial) 0.2 mg IV Q2M PRN PRN Reason: Opioid Reversal Nicotine (Nicotine 21mg/24hr Patch) 1 patch TRANSDERM DAILY [facility] Last Admin: 06/30/24 08:31 Dose: Not Given Nitroglycerin (Nitroglycerin Sl Tabs 0.4 Mg Tab) 0.4 mg SUBLINGUAL Q5M PRN PRN Reason: Chest Pain Pantoprazole Sodium (Pantoprazole 40 Mg Tablet) 40 mg PO HS [facility] Last Admin: 06/30/24 20:28 Dose: 40 mg Ticagrelor (Ticagrelor 90 Mg Tab) 90 mg PO BID [facility]; Protocol Last Admin: 07/01/24 09:04 Dose: 90 mg Zolpidem Tartrate (Zolpidem 5 Mg Tab) 5 mg PO HS PRN PRN Reason: Insomnia Social history: . Patient smoked for about 25 years averaged about 2 and half packs a day stopped 2 years ago. Does vaping significantly. Drinks an average of 10 beers a week. Works at [employer] for [employer] Physical examination: VITAL SIGNS: 97.9, 71, 14, 149 x 66, 98% room air GENERAL: In bed comfortable EYES: Pupils equal. Conjunctiva rahul l. HEENT: External appearance of nose and ears normal, oral cavity grossly normal. NECK: JVD not raised; masses not palpable. HEART: First and second heart sounds are normal; no edema. LUNGS: Respiratory rate normal; clear to auscultation. ABDOMEN: Soft, nontender, liver spleen not palpable, no masses palpable. PSYCH: Alert and oriented x3; mood and affect rahul l. MUSCULOSKELETAL:No Clubbing/cyanosis;muscles-grossly intact INVESTIGATIONS, reviewed in the clinical context: 2D echo: EF 50-55% Triglycerides 231 LDL 135 June 29, 2024: White count 7.6 hemoglobin 16.6 platelets 216 sodium 133 potassium 4.3 BUN 5 creatinine 0.8 Troponin I 0.077, 0.185, 0.780 EKG tracing personally reviewed by me-normal sinus rhythm. Peaked T waves. EKG reported from the EMS at field showed ST elevation Chest x-ray film personally reviewed by me-unremarkable Assessment plan: Acute ST elevation [place], of the anterior wall. Cardiac cath showed plaque rupture mid LAD with 80% stenosis. Successful stent. Initial cardiac catheterization done by Dr. Camila Dejesus. Followed by stent placement by Dr. Carlton. Aspirin. Lipitor. Lopressor. -Nicotine dependence. Patient stopped smoking 2 years ago. Does heavy vaping. Nicotine patch -Hyperlipidemia Lipitor -Hypotestosteronism Patient on testosterone Depo shots every 14 days -Obesity BMI 33.5 Weight loss measures -GERD PPI Discussed. Activity as tolerated. Possible home tomorrow Past Medical History Past Medical History: Asthma Additional Past Medical History / Comment(s): LACERATION RIGHT INDEX FINGER History of Any Multi-Drug Resistant Organisms: None Reported Past Surgical History: Cholecystectomy, Heart Catheterization, Heart Catheterization With Stent Additional Past Surgical History / Comment(s): wisdom teeth. Past Anesthesia/Blood Transfusion Reactions: No Reported Reaction Date of Last Stent Placement:: 06/29/2024 Past Psychological History: No Psychological Hx Reported Smoking Status: Former smoker, Vaper Past Alcohol Use History: Occasional Past Drug Use History: None Reported
[2024-07-02 11:09] VITALS: BP 121/70; PULSE 62; RESP 18; TEMP 97.7
--- NOTE | 2024-07-02 11:22 | P.PN ---
Subjective Progress Note Date: 07/02/24 Reason for Consult (text): NSTEMI History of present illness: This is a 44-year-old male patient with past medical history of GERD, no previous cardiac history. Patient developed chest pain that started this morning off and on. He was driving and ended up pulling over, was dizzy ended up blacking out" then called EMS. He was having tingling in the left arm as well as midsternal chest pain. EKG revealed ST elevation in the anterior leads. Currently pain is a #4. He has a history of smoking and quit 2 years ago but currently vapes. He also has history of chest pain for 20 years and had his gallbladder removed which did not help relieve the pain. EKG: ST elevation in anterior leads. Chest x-ray: No acute process Laboratory studies: None available Home cardiac medications: None 07/01 Patient underwent urgent left heart catheterization status post PCI of the LAD. Patient was in the intensive care unit and transferred to the cardiac stepdown unit. He denies having any chest pain, no shortness of breath, palpitations, lightheadedness or dizziness. Echocardiogram reveals EF of 50 to 55%, trace TR. Blood pressure 146/75, heart rate 63, pulse ox 96% on room air. Creatinine 1.02. 07/02 Patient has had no events overnight. He remains without chest pain, no shortness of breath. Blood pressure this morning 129/82 but last evening he was 156/103. Heart rate 73, pulse ox 94% on room air. He denies chest, shortness of breath. He has been ambulating without difficulty. Physical examination: Gen: This is a 44-year-old male in no acute distress VS: reviewed HEENT: Head is atraumatic, normocephalic. Pupils equal, round. Sclerae is anicteric. NECK: Supple. No JVD. LUNGS: Clear to auscultation. No wheezes or rhonchi. No intercostal retractions. HEART: Regular rate and rhythm. No murmur. ABDOMEN: Soft No tenderness. EXTREMITIES: No pedal edema. No calf tenderness. NEUROLOGICAL: Patient is awake, alert and oriented x3. Assessment: Acute anterior wall ST elevated myocardial infarction status post PCI of the LAD 06/29 Hyperlipidemia Remote history of tobacco use, currently vapes Gastroesophageal reflux disease Plan: Continue patient on aspirin 81 mg daily, Lipitor 80 mg daily, Lopressor 25 mg twice daily, Brilinta 90 mg twice daily Vaping cessation, patient will be given smoking cessation information at discharge Patient is cleared for discharge from cardiology and will follow-up with Dr. Abdullahi Dejesus after July 12. Patient is planning to go to [place] from July 08 through the . Nurse practitioner note has been reviewed, I agree with documented findings and plan of care. Patient was seen and examined. Objective - Vital Signs Vital signs: Vital Signs Temp 98.0 F 07/02/24 05:00 Pulse 73 07/02/24 05:00 Resp 16 07/02/24 05:00 BP 129/82 07/02/24 05:00 Pulse Ox 94 L 07/02/24 05:00 FiO2 Intake & Output 07/01/24 07/02/24 07/02/24 18:59 06:59 18:59 Intake Total 702 20 Balance 702 20 Weight 101 kg Intake: IV 20 Invasive Line 1 10 Invasive Line 2 10 Oral 702 Other: Voiding Method Urinal Urinal # Voids 2 1 - Labs CBC & Chem 7: 06/29/24 11:00 07/01/24 07:52
--- NOTE | 2024-07-02 15:39 | P.DS ---
Providers Date of admission: 06/29/24 10:26 Expected date of discharge: 07/02/24 Attending physician: Ranjan Vásquez Consults: 06/29/24 10:02 Consult Physician Stat Consulting Provider: Jyoti Yun Consult Reason/Comments: stemi Do you want consulting provider notified?: Already Contacted 06/29/24 12:22 Consult Physician Routine Consulting Provider: Jyoti Yun Consult Reason/Comments: Post Interventional patient Do you want consulting provider notified?: Already Contacted Primary care physician: Jeff Slaughter [facility] Course: Chief Complaint: Chest pressure This is a pleasant 44-year-old patient who follows with [facility] [employer] Cecil Baldwin. Chronic stable medical conditions include GERD, for which he takes omeprazole and testosterone. Patient's had chest pain on and off. Has had previous cholecystectomy. This morning around 4 AM patient developed chest pressure going to his left arm feeling numb. He did walk around for couple of hours. The settle down. There is no radiation no dizziness no lightheadedness. 7:15 AM patient went to the work. Pain is settled on his own. His colleagues and his told him to get to the hospital. When he was driving he developed chest pressure again. And had a near syncope. EMS was called. He received chewable aspirin. Patient stopped smoking 2 years ago but does significant amount of vaping. EKG had shown ST elevation per EMS. 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 Midportion of LAD showed area of plaque rupture with 80% stenosis. Initial cardiac cath was done by Dr. Camila Dejesus and intervention by Dr. Carlton. Postprocedure patient is the ICU. and sister at the bedside. June 30: Patient seen by me earlier today in the ICU. Has been up in the [place]. No cardiac symptoms. Lifestyle changes discussed at length. Cholesterol results discussed. Including smoking cessation. Tolerating diet. July 01: Patient been up and about. No cardiac symptoms. Discussed. Cardiology would like to watch him for another 24 hours. July 02: Patient doing well. Up and about. No cardiac symptoms. Medications discussed. Lifestyle changes discussed. Questions answered. Will follow-up with PCP and cardiology. Discussion and discharge planning more than 35 minutes Social history: . Patient smoked for about 25 years averaged about 2 and half packs a day stopped 2 years ago. Does vaping significantly. Drinks an average of 10 beers a week. 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 Conjunctiva rahul l. HEENT: External appearance of nose and ears normal, oral cavity grossly normal. NECK: JVD not raised; masses not palpable. HEART: First and second heart sounds are normal; no edema. LUNGS: Respiratory rate normal; clear to auscultation. ABDOMEN: Soft, nontender, liver spleen not palpable, no masses palpable. PSYCH: Alert and oriented x3; mood and affect rahul l. MUSCULOSKELETAL:No Clubbing/cyanosis;muscles-grossly intact INVESTIGATIONS, reviewed in the clinical context: 2D echo: EF 50-55% Triglycerides 231 LDL 135 June 29, 2024: White count 7.6 hemoglobin 16.6 platelets 216 sodium 133 potassium 4.3 BUN 5 creatinine 0.8 Troponin I 0.077, 0.185, 0.780 EKG tracing personally reviewed by me-normal sinus rhythm. Peaked T waves. EKG reported from the EMS at field showed ST elevation Chest x-ray film personally reviewed by me-unremarkable Assessment plan: Acute ST elevation MO, of the anterior wall. Cardiac cath showed plaque rupture mid LAD with 80% stenosis. Successful stent. Initial cardiac catheterization done by Dr. Camila Dejesus. Followed by stent placement by Dr. Carlton. Aspirin. Lipitor. Lopressor. -Nicotine dependence. Patient stopped smoking 2 years ago. Does heavy vaping. Nicotine patch -Hyperlipidemia Lipitor -Hypotestosteronism Patient on testosterone Depo shots every 14 days -Obesity BMI 33.5 Weight loss measures -GERD PPI Disposition: Home Past Medical History Past Medical History: Asthma Additional Past Medical History / Comment(s): LACERATION RIGHT INDEX FINGER History of Any Multi-Drug Resistant Organisms: None Reported Past Surgical History: Cholecystectomy, Heart Catheterization, Heart Catheterization With Stent Additional Past Surgical History / Comment(s): wisdom teeth. Past Anesthesia/Blood Transfusion Reactions: No Reported Reaction Date of Last Stent Placement:: 06/29/2024 Past Psychological History: No Psychological Hx Reported Smoking Status: Former smoker, Vaper Past Alcohol Use History: Occasional Past Drug Use History: None Reported Plan - Discharge Summary Discharge Rx Participant: No New Discharge Prescriptions: New Aspirin 81 mg PO DAILY #90 tab Ticagrelor [Brilinta] 90 mg PO BID #180 tab Metoprolol Tartrate [Lopressor] 25 mg PO BID #180 tab Nicotine 21Mg/24Hr Patch [Habitrol] 1 patch TRANSDERM DAILY #30 patch Atorvastatin [Lipitor] 80 mg PO HS #90 tab Nitroglycerin Sl Tabs [Nitrostat] 0.4 mg SUBLINGUAL Q5M PRN #25 tab PRN Reason: Chest Pain Pantoprazole [Protonix] 40 mg PO HS #30 tab Continue Testosterone Cypionate [Depo-Testosterone] 200 mg IM Q14D Discharge Medication List Testosterone Cypionate [Depo-Testosterone] 200 mg IM Q14D 06/29/24 [History] Aspirin 81 mg PO DAILY #90 tab 07/01/24 [Rx] Atorvastatin [Lipitor] 80 mg PO HS #90 tab 07/01/24 [Rx] Metoprolol Tartrate [Lopressor] 25 mg PO BID #180 tab 07/01/24 [Rx] Nitroglycerin Sl Tabs [Nitrostat] 0.4 mg SUBLINGUAL Q5M PRN #25 tab 07/01/24 [Rx] Ticagrelor [Brilinta] 90 mg PO BID #180 tab 07/01/24 [Rx] Nicotine 21Mg/24Hr Patch [Habitrol] 1 patch TRANSDERM DAILY #30 patch 07/02/24 [Rx] Pantoprazole [Protonix] 40 mg PO HS #30 tab 07/02/24 [Rx] Follow up Appointment(s)/Referral(s): Jeff Slaughter MD [Primary Care Provider] - 1-2 days (Call office to set up appointment ) Stuart Dejesus MD [STAFF PHYSICIAN] - 3 Weeks (Call office to set up appointment) Patient Instructions/Handouts: Heart Attack (DC), Heart Catheterization (DC) Discharge Disposition: HOME SELF-CARE
== END 2024-07-02 13:56 | disposition home or self-care (01) | DRG 322 ==
LOC: EC 09:53 → SUPCPDRO 09:53 → 2SICU 10:26 → 3SCARD 06-30 15:17
PROVIDERS: ADMIT Hospitalist; ATTEND Hospitalist
PROC: B240ZZ3 Ultrasonography of Single Coronary Artery, Intravascular (ICD-10-PCS; principal; 2024-06-29 09:56)
PROC: 027034Z Dilation of Coronary Artery, One Artery with Drug-eluting Intraluminal Device, Percutaneous Approach (ICD-10-PCS; principal; 2024-06-29 09:56)
PROC: 4A023N7 Measurement of Cardiac Sampling and Pressure, Left Heart, Percutaneous Approach (ICD-10-PCS; 2024-06-29 09:56)
PROC: B2111ZZ Fluoroscopy of Multiple Coronary Arteries using Low Osmolar Contrast (ICD-10-PCS; 2024-06-29 09:56)
DX: I21.09 ST elevation (STEMI) myocardial infarction involving other coronary artery of anterior wall (principal); I10 Essential (primary) hypertension; I25.10 Atherosclerotic heart disease of native coronary artery without angina pectoris; F17.290 Nicotine dependence, other tobacco product, uncomplicated; K21.9 Gastro-esophageal reflux disease without esophagitis; E78.5 Hyperlipidemia, unspecified; Z79.890 Hormone replacement therapy; Z79.82 Long term (current) use of aspirin; Z79.899 Other long term (current) drug therapy; Z90.49 Acquired absence of other specified parts of digestive tract; E66.9 Obesity, unspecified; Z68.33 Body mass index [BMI] 33.0-33.9, adult; J45.909 Unspecified asthma, uncomplicated; Z79.02 Long term (current) use of antithrombotics/antiplatelets; Z88.1 Allergy status to other antibiotic agents; Z88.0 Allergy status to penicillin
CPT/HCPCS: 36415; 71045; 80053; 80061; 82565; 84484; 85025; 85610; 85730; 92978; 93005; 93306; 93458; 96374; 99291

== ENCOUNTER → 2024-08-11 | Outpatient (CLI) | payer OTHER ==
[2024-08-11 19:15] LABS: ALT 48 U/L (10-49); AST 29 U/L (14-35); Chol/HDL Ratio 3.46 Ratio; LDL Cholesterol,Calculated 76.7 mg/dL (0.0-131.0)
== END | disposition home or self-care (01) ==
LOC: LABWHC1 12:15
PROVIDERS: ATTEND Internal Medicine Cardiovascular Disease
DX: E78.2 Mixed hyperlipidemia (principal)
CPT/HCPCS: 36415; 80061; 84450; 84460